=== PATIENT | female | born 1985 | race Caucasian/White ===

== ENCOUNTER 2024-06-06 09:41 | Outpatient (AMB) | payer MEDICAID, SELFPAY ==
--- NOTE | 2024-06-06 10:00 | PD.ORTHCLVIS ---
Vital signs 06/06/24 10:01 Height 1.68 m Height Method Stated Weight 95.821 kg Weight Measurement Method Standing Scale BMI 33.9 BP 118/81 Blood Pressure Source Automatic Cuff Blood Pressure Location Right Upper Arm Position Sitting Respiration 19 Pulse 72 Pulse Source Monitor Temp 97.4 F Temp Source Temporal Artery Scan Pulse Oximetry (%) 97 Oxygen Delivery Method Room Air Med/Allergies Allergies & Medications Allergies Sulfa (Sulfonamide Antibiotics) Adverse Reaction (Verified 06/06/24 10:01) Hives Medication Reconciliation gabapentin 100 mg capsule 100 mg PO BID 01/30/24 [History Confirmed 06/06/24] gabapentin 300 mg capsule 300 mg PO BID 01/30/24 [History Confirmed 06/06/24] lisinopril 20 mg tablet 20 mg PO QDAY 01/30/24 [History Confirmed 06/06/24] Subjective Visit Visit for: follow up visit, hip and injections Immunization / Flu Flu Vaccine in the Last 12 Months: No Flu Vaccine Exclusion Criteria: No Exclusion Criteria History of Present Illness Chief complaint: FOLLOW UP HIP INJECTIONS Date of injury / onset of symptoms: 3 TO 4 YRS AGO Mary is a 39-year-old female who was sent here for hip dysplasia. She been having hip pain for quite a while. The pain is primarily on the side of her hip and above her hip. The left side is worse than the right. She tried anti-inflammatories. She will try physical therapy. He had a hip injection and the pain is improved somewhat. She still has pain going down both legs. She actually thinks of this is from her back and is getting a workup with her primary care physician Personal History Occupation: UNEMPLOYED Pain Pain level (0-10): 0 Pain duration: IT VARIES Pain location: groin and outside (lateral) Pain quality: sharp and tingling Pain timing: increases with activity Associated signs & symptoms: none Ambulatory data Ambulatory device: none Treatments Improvement with previous injections: Yes Improvement with PT: No Improvement with NSAIDS: no Review of Systems Review of Systems: All systems negative unless otherwise noted in HPI. Exam Exam Patient is in no acute distress and is cooperative with the examination today. Patient has a normal mood and affect. Breathing is nonlabored. In no respiratory distress. Bilateral extremities were evaluated and demonstrates sensation intact to light touch. Palpable pedal pulses are present. No significant edema is present. Right hip demonstrates no pain with logroll. She can flex 90 degrees internal rotate 20 extremity 30 abducts to 40. The left side demonstrates the same range of motion. There is no pain with logroll. Negative Stinchfield bilateral X-rays demonstrate a dysplastic left hip with a high tonus angle. There is minimal arthritis Assessment and Plan Problem List (1) Acquired dysplasia of left hip: Status: Acute Plan: Patient is a 39-year-old male with a left hip dysplasia. We Discussed nonoperative and operative treatment. I am not sure the majority of her pain is from the hip. A lot of the pain is on the side and she has no pain in groin no pain with logroll based on clinical examination. She is improved somewhat with the hip injection. We recommend a back workup at this time. Will see her in approximately 2 months to see how she is doing Office Procedures GNS Level of Care Nursing/Assessment Patient Status: Established Patient Nursing Assessment/Reassesment: Medication Reconciliation, Update PMH in EMR and Vital Signs Coordination of Care: Complex Care and Chronic Disease 1-5, Education Complex Pt/Fam, Consent,records obtained, informed consent, Results/Orders obtained and Staff clarify orders Established Patient Charge Established Patient Point Assignment: 95 Established Patient Point Charge: EP Level 3 (80-115) Past Medical History Past Medical History Have you ever been diagnosed with any of the following: Respiratory Problems Smoking: No Smoking Exposure: No
[2024-06-06 10:01] VITALS: BP 118/81; PULSE 72; RESP 19; TEMP 36.3; O2SAT 97; BMI 33.9
== END 2024-06-06 10:08 | disposition home or self-care (01) ==
LOC: HODSRG 09:41
PROVIDERS: PCP Nurse Practitioner Family; Referring Provider Nurse Practitioner Family; Supervising Provider Orthopaedic Surgery Adult Reconstructive Orthopaedic Surgery; Visit Provider Orthopaedic Surgery Adult Reconstructive Orthopaedic Surgery
DX: M25.852 Other specified joint disorders, left hip (principal)
CPT/HCPCS: 99213; G0463

== ENCOUNTER 2024-08-20 09:04 | Outpatient (AMB) | payer MEDICAID, SELFPAY ==
[2024-08-20 09:14] VITALS: BP 145/101; PULSE 77; RESP 19; TEMP 36.5; O2SAT 98; BMI 34.1
--- NOTE | 2024-08-20 09:14 | ORTHONT_ITS ---
Vital signs 08/20/24 09:14 Height 1.68 m Height Method Stated Weight 96.388 kg Weight Measurement Method Standing Scale BMI 34.1 BP 145/101 H Blood Pressure Source Automatic Cuff Blood Pressure Location Left Upper Arm Position Sitting Respiration 19 Pulse 77 Pulse Source Monitor Temp 97.7 F Temp Source Temporal Artery Scan Pulse Oximetry (%) 98 Oxygen Delivery Method Room Air Med/Allergies Allergies & Medications Allergies Sulfa (Sulfonamide Antibiotics) Adverse Reaction (Verified 08/20/24 09:14) Hives Medication Reconciliation gabapentin 100 mg capsule 100 mg PO BID 01/30/24 [History Confirmed 08/20/24] gabapentin 300 mg capsule 300 mg PO BID 01/30/24 [History Confirmed 08/20/24] lisinopril 20 mg tablet 20 mg PO QDAY 01/30/24 [History Confirmed 08/20/24] Exam Exam Patient is in no acute distress and is cooperative with the examination today. Patient has a normal mood and affect. Breathing is nonlabored. In no respiratory distress. Bilateral extremities were evaluated and demonstrates sensation intact to light touch. Palpable pedal pulses are present. No significant edema is present. Right hip demonstrates no pain with logroll. She can flex 90 degrees internal rotate 20 extremity 30 abducts to 40. The left side demonstrates the same range of motion. There is no pain with logroll. Negative Stinchfield bilateral X-rays demonstrate a dysplastic left hip with a high tonus angle. There is minimal arthritis Assessment and Plan Problem List (1) Acquired dysplasia of left hip: Status: Acute Plan: Patient is a 39-year-old male with a left hip dysplasia. We Discussed nonoperative and operative treatment. I am not sure the majority of her pain is from the hip. A lot of the pain is on the side and she has no pain in groin no pain with logroll based on clinical examination. Given that she received relief of the hip injection on the left, we can try hip injection on the right. She is also interested in seeing her preservation spec ialist. She may be a candidate for AMANDA as she has minimal arthritis. Will do a phone call to go over new x-rays as it has been over 18 months Office Procedures GNS Level of Care Nursing/Assessment Patient Status: Established Patient Nursing Assessment/Reassesment: Medication Reconciliation, Update PMH in EMR and Vital Signs Coordination of Care: Complex Care and Chronic Disease 1-5, Education Complex Pt/Fam, Consent,records obtained, informed consent, Results/Orders obtained and Staff clarify orders Established Patient Charge Established Patient Point Assignment: 95 Established Patient Point Charge: EP Level 3 (80-115) MA Intake Visit Data Collection New Patient or Established: Established Patient (seen at [facility] within 3 years) Reason for Visit:: 3 MONTH FOLLOW UP Seen by Clinical Staff ONLY (RN/MA): No 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 She had a previous injection in the left hip and received some relief with the pain. She is now experiencing more pain right we diagnosed Provide severe bilateral hip dysplasia. There is no significant arthritis Present and we thus talked about Seeing a hip preservation specialist Pain Pain level (0-10): 5 Pain duration: ALL DAY Pain location: inside (medial) Pain quality: aching Pain timing: night, increases with activity and stairs Ambulatory data Ambulatory device: none Treatments Number of previous injections: 1 Improvement with previous injections: No Improvement with PT: No Improvement with NSAIDS: no Review of Systems Review of Systems: All systems negative unless otherwise noted in HPI.
== END 2024-08-20 09:37 | disposition home or self-care (01) ==
LOC: HODSRG 09:04
PROVIDERS: PCP Nurse Practitioner Family; Referring Provider Nurse Practitioner Family; Supervising Provider Orthopaedic Surgery Adult Reconstructive Orthopaedic Surgery; Visit Provider Orthopaedic Surgery Adult Reconstructive Orthopaedic Surgery
DX: M25.852 Other specified joint disorders, left hip (principal)
CPT/HCPCS: 99213; G0463

== ENCOUNTER 2024-09-17 11:57 | Outpatient (AMB) | payer MEDICAID, SELFPAY ==
--- NOTE | 2024-09-17 11:54 | PD.ORTHTELE ---
Med/Allergies Allergies & Medications Allergies Sulfa (Sulfonamide Antibiotics) Adverse Reaction (Verified 09/17/24 11:54) Hives Medication Reconciliation gabapentin 100 mg capsule 100 mg PO BID 01/30/24 [History Confirmed 09/17/24] gabapentin 300 mg capsule 300 mg PO BID 01/30/24 [History Confirmed 09/17/24] lisinopril 20 mg tablet 20 mg PO QDAY 01/30/24 [History Confirmed 09/17/24] meloxicam 7.5 mg tablet 7.5 mg PO QDAY #45 tabs 09/17/24 [Rx] Subjective Visit Visit for: follow up visit and x-rays Immunization / Flu Flu Vaccine in the Last 12 Months: No Flu Vaccine Exclusion Criteria: No Exclusion Criteria History of Present Illness Chief complaint: F/U XRAYS Date of injury / onset of symptoms: 3 TO 4 YRS AGO Mary is a 39-year-old female who was sent here for hip dysplasia. She has been having hip pain for quite a while. The pain is primarily on the side of her hip and above her hip. The left side is worse than the right. She tried anti-inflammatories. She will try physical therapy. He had a hip injection and the pain is improved somewhat. She still has pain going down both legs. She actually thinks this is from her back and is getting a workup with her primary care physician. She would like a right hip injection as well Personal History Occupation: UNEMPLOYED Pain Pain level (0-10): 5 Pain duration: ALL DAY Pain location: inside (medial), outside (lateral), anterior and posterior Pain quality: sharp, dull and aching Pain timing: increases with activity Associated signs & symptoms: none Ambulatory data Ambulatory device: none Treatments Improvement with previous injections: No Improvement with PT: No Improvement with NSAIDS: no Review of Systems Review of Systems: All systems negative unless otherwise noted in HPI. Assessment and Plan Problem List (1) Acquired dysplasia of left hip: Status: Acute Plan: Patient is a 39-year-old male with a left hip dysplasia. We Discussed nonoperative and operative treatment. I am not sure the majority of her pain is from the hip. A lot of the pain is on the side and she has no pain in groin no pain with logroll based on clinical examination. Given that she received relief of the hip injection on the left, we can try hip injection on the right. She is also interested in seeing her preservation specialist. She may be a candidate for AMANDA as she has minimal arthritis. Office Procedures GNS Level of Care Nursing/Assessment Patient Status: Established Patient Nursing Assessment/Reassesment: Medication Reconciliation, Update PMH in EMR and Vital Signs Coordination of Care: Complex Care and Chronic Disease 1-5, Education Complex Pt/Fam, Consent,records obtained, informed consent, Lab and Imaging orders, Results/Orders obtained and Staff clarify orders Established Patient Charge Established Patient Point Assignment: 110 Established Patient Point Charge: EP Level 3 (80-115)
== END 2024-09-17 11:59 | disposition home or self-care (01) ==
LOC: HODSRG 11:57
PROVIDERS: PCP Nurse Practitioner Family; Referring Provider Nurse Practitioner Family; Supervising Provider Orthopaedic Surgery Adult Reconstructive Orthopaedic Surgery; Visit Provider Orthopaedic Surgery Adult Reconstructive Orthopaedic Surgery
DX: M21.852 Other specified acquired deformities of left thigh (principal)
CPT/HCPCS: 99213; G0463

== ENCOUNTER 2025-01-02 14:49 | Outpatient (AMB) | payer MEDICAID, SELFPAY ==
[2025-01-02 15:14] VITALS: BP 142/99; PULSE 75; RESP 18; TEMP 36.3; O2SAT 97; BMI 33.1
--- NOTE | 2025-01-02 15:14 | PD.ORTHCLVIS ---
Vital signs 01/02/25 15:14 Height 1.68 m Height Method Stated Weight 93.468 kg Weight Measurement Method Standing Scale BMI 33.1 BP 142/99 H Blood Pressure Source Automatic Cuff Blood Pressure Location Left Upper Arm Position Sitting Respiration 18 Pulse 75 Pulse Source Monitor Temp 97.3 F Temp Source Temporal Artery Scan Pulse Oximetry (%) 97 Oxygen Delivery Method Room Air Med/Allergies Allergies & Medications Allergies Sulfa (Sulfonamide Antibiotics) Adverse Reaction (Verified 01/02/25 15:15) Hives Medication Reconciliation gabapentin 100 mg capsule 100 mg PO BID 01/30/24 [History Confirmed 01/02/25] gabapentin 300 mg capsule 300 mg PO BID 01/30/24 [History Confirmed 01/02/25] lisinopril 20 mg tablet 20 mg PO QDAY 01/30/24 [History Confirmed 01/02/25] meloxicam 7.5 mg tablet 7.5 mg PO QDAY #45 tabs 09/17/24 [Rx Confirmed 01/02/25] Exam Exam Patient is in no acute distress and is cooperative with the examination today. Patient has a normal mood and affect. Breathing is nonlabored. In no respiratory distress. Bilateral extremities were evaluated and demonstrates sensation intact to light touch. Palpable pedal pulses are present. No significant edema is present. Right hip demonstrates no pain with logroll. She can flex 90 degrees internal rotate 20 extremity 30 abducts to 40. The left side demonstrates the same range of motion. There is no pain with logroll. Negative Stincfield bilateral X-rays demonstrate a dysplastic left hip with a high tonus angle. There is minimal arthritis Assessment and Plan Problem List (1) Acquired dysplasia of left hip: Status: Acute Plan: Patient is a 39-year-old male with a left hip dysplasia. We Discussed nonoperative and operative treatment. I am not sure the majority of her pain is from the hip. A lot of the pain is on the side and she has no pain in groin no pain with logroll based on clinical examination. She has significant left hip dysplasia and thus I recommend a periacetabular osteotomy as she does not have significant arthritis at this time. She would benefit from seeing a hip preservation specialist. This would likely have to be a [facility] as I do not know anyone that does not in the [place]. I discussed with her that I would try to get a list of names and let her know where to go. I do however know that there are surgeons at [facility], [facility], and [facility] that do this Plan Please send a copy of this note to her primary care provider. We will also make sure that we give her a list of some surgeons that do this as this is a very niche and somewhat rare surgery Office Procedures GNS Level of Care Nursing/Assessment Patient Status: Established Patient Nursing Assessment/Reassesment: Medication Reconciliation, Update PMH in EMR and Vital Signs Coordination of Care: Complex Care and Chronic Disease 1-5, Education Complex Pt/Fam, Consent,records obtained, informed consent, Results/Orders obtained and Staff clarify orders Established Patient Charge Established Patient Point Assignment: 95 Established Patient Point Charge: EP Level 3 (80-115) MA Intake Visit Data Collection New Patient or Established: Established Patient (seen at [facility] within 3 years) Reason for Visit:: FU BILAT HIP PAIN Seen by Clinical Staff ONLY (RN/MA): No Technical Support Associate Required: No PCP or OBGYN visit in last 3 months: Yes Hx Now: No Do You Feel Safe at Home: Yes Authorities Contacted: N/A Questionairres Past Medical History Past Medical History Have you ever been diagnosed with any of the following: Respiratory Problems Smoking: No Smoking Exposure: No Subjective Visit Visit for: hip (BILATERAL HIP PAIN ) Immunization / Flu Flu Vaccine in the Last 12 Months: No Flu Vaccine Exclusion Criteria: Refused by Patient History of Present Illness Chief complaint: Bilateral hip pain Mary is a pleasant 39-year-old female with bilateral hip pain. She had a previous injection in the left hip and received some relief with the pain. She is now experiencing more pain right we diagnosed Provide severe bilateral hip dysplasia. There is no significant arthritis Present and we thus talked about Seeing a hip preservation specialist Personal History Red flag PMH: none Pain Pain level (0-10): 5 Pain duration: 01/2024 Pain location: groin Pain quality: sharp and dull Pain timing: night Associated signs & symptoms: stiffness Ambulatory data Ambulatory device: none Walking distance (minutes): 1 Treatments Number of previous injections: 1 (LEFT HIP) Improvement with previous injections: No Number of Physical Therapy sessions: 24 Improvement with PT: No Improvement with NSAIDS: n/a Review of Systems Review of Systems: All systems negative unless otherwise noted in HPI.
== END 2025-01-02 15:44 | disposition home or self-care (01) ==
LOC: HODSRG 14:49
PROVIDERS: PCP Nurse Practitioner Family; Referring Provider Nurse Practitioner Family; Supervising Provider Orthopaedic Surgery Adult Reconstructive Orthopaedic Surgery; Visit Provider Orthopaedic Surgery Adult Reconstructive Orthopaedic Surgery
DX: M21.852 Other specified acquired deformities of left thigh (principal); M25.552 Pain in left hip; M25.551 Pain in right hip
CPT/HCPCS: 99213; G0463